=== PATIENT | female | born 1965 | race Caucasian/White ===

== ENCOUNTER 2019-11-07 07:25 | Inpatient (IN) | payer MEDICAID ==
[~2019-11-07] VITALS: Ht 154.4 cm; Wt 61.7 kg
[2019-11-07] MEDS ORDERED: SODIUM CHLORIDE 0.9% 1,000 ML IV SCH (08:00)
[2019-11-07] MEDS ORDERED: ATOR40TA70 PO (11:26)
[2019-11-07] MEDS ORDERED: LISI10TA5 PO (11:26)
[2019-11-07] MEDS ORDERED: ERTU15TA PO (11:26)
[2019-11-07] MEDS ORDERED: METF-815 PO (11:26)
[2019-11-07] MEDS ORDERED: EPINEPHRINE 1:1000 1 MG/ML AMP ONE (12:24)
[2019-11-07] MEDS ORDERED: BACITRACIN 50,000 UNITS/VIAL ONE (12:25)
[2019-11-07] MEDS ORDERED: BUPIVACAINE/EPINEPH/PF 0.25%/0.0005 10ML ONE ×3 (12:25→15:43)
[2019-11-07] MEDS ORDERED: CEFAZOLIN SODIUM 1000MG/VIAL ONE (13:51)
[2019-11-07] MEDS ORDERED: LABETALOL 5MG/ML SYR 20 MG/4 ML SYRINGE IV PRN (14:30)
[2019-11-07] MEDS ORDERED: HYDROMORPHONE HCL/PF 2MG/ML CPJ IV PRN (14:30)
[2019-11-07] MEDS ORDERED: ONDANSETRON HCL 4MG/2ML INJ IV PRN ×2 (14:30→16:15)
[2019-11-07] MEDS ORDERED: MEPERIDINE HCL/PF 25MG/ML CPJ IV PRN (14:30)
[2019-11-07] MEDS ORDERED: MORPHINE SULFATE/PF 1MG/ML 10ML AMP ONE (14:59)
[2019-11-07] MEDS ORDERED: ACETAMINOPHEN 325MG TABLET PO PRN (16:15)
[2019-11-07] MEDS ORDERED: ZOLPIDEM TARTRATE 5MG TABLET PO PRN (16:15)
[2019-11-07] MEDS ORDERED: HYDROCODONE/ACETAMINOPHEN 5/325MG TABLET PO PRN ×2 (16:15)
[2019-11-07] MEDS ORDERED: ONDANSETRON INJ IV PRN (16:45)
[2019-11-07] MEDS ORDERED: NALOXONE INJ IV PRN (16:45)
[2019-11-07] MEDS ORDERED: HYDROMORPHONE PCA 10MG/50ML IV PRN (16:45)
[2019-11-07 20:00] VITALS: BP 117/64
[2019-11-07 20:30] VITALS: BP 113/77
[2019-11-07] MEDS: INSULIN LISPRO 100 UNITS/ML SUBCUT SCH (21:00)
[2019-11-07] MEDS ORDERED: DEXTROSE 50% WATER 50ML SYRINGE IV PRN (21:00)
[2019-11-07] MEDS: BLOOD SUGAR DIAGNOSTIC STRIP TEST SCH (21:15)
[2019-11-08] VITALS: BP 113/77
[2019-11-08 04:00] VITALS: BP 102/60
[2019-11-08] MEDS: BLOOD SUGAR DIAGNOSTIC STRIP TEST SCH ×2 (06:44→12:34)
[2019-11-08] MEDS: INSULIN LISPRO 100 UNITS/ML SUBCUT SCH ×2 (07:50→12:34)
[2019-11-08 08:00] VITALS: BP 119/69
[2019-11-08 12:00] VITALS: BP 106/71
[2019-11-08 16:00] VITALS: BP 107/69
[2019-11-08 16:05] VITALS: BP 107/69
== END 2019-11-08 16:17 | disposition home or self-care (01) | DRG 315 ==
LOC: OR 07:25 → 6EST 20:04
PROVIDERS: ADMIT Internal Medicine; ATTEND Internal Medicine
PROC: 0MB14ZZ Excision of Right Shoulder Bursa and Ligament, Percutaneous Endoscopic Approach (ICD-10-PCS; principal; 2019-11-07)
DX: M75.01 Adhesive capsulitis of right shoulder (principal); E11.9 Type 2 diabetes mellitus without complications; E78.5 Hyperlipidemia, unspecified; G89.29 Other chronic pain; M75.101 Unspecified rotator cuff tear or rupture of right shoulder, not specified as traumatic; I10 Essential (primary) hypertension; M13.819 Other specified arthritis, unspecified shoulder; Z79.899 Other long term (current) drug therapy; Z90.49 Acquired absence of other specified parts of digestive tract; Z03.818 Encounter for observation for suspected exposure to other biological agents ruled out
CPT/HCPCS: 71045; 82962; 83036; 88304; 88311; 97166; A4565; J0171; J0690; J1170; J1815; J2274; J3490; C9803-CS; U0003-CS

== ENCOUNTER 2020-03-07 05:47 | Day surgery (SDC) | payer MEDICAID ==
[~2020-03-07] VITALS: Ht 154.9 cm; Wt 61.7 kg
[~2020-03-07 05:47] MED LIST: ATOR40TA70 PO; ERTU15TA PO; LISI10TA5 PO; METF-815 PO
[2020-03-07] MEDS ORDERED: SODIUM CHLORIDE 0.9% 1,000 ML IV SCH (06:30)
[2020-03-07] MEDS ORDERED: LIDOCAINE HCL 1% 20ML VIAL (Pyxis) INJ ONE (06:34)
[2020-03-07] MEDS ORDERED: METHYLPREDNISOLONE SOD SUCC 40 MG/ML VIAL ONE (06:34)
[2020-03-07] MEDS ORDERED: BUPIVACAINE/EPINEPH/PF 0.25%/0.0005 10ML ONE (06:35)
[2020-03-07] MEDS ORDERED: HYDROCODONE/ACETAMINOPHEN 10/325MG TABLET PO PRN (07:45)
[2020-03-07] MEDS ORDERED: MORPHINE SULFATE/PF 1MG/ML 10ML AMP ONE (07:48)
[2020-03-07] MEDS ORDERED: ROPIVACAINE HCL 10MG/ML 20 ML VIAL EPI ONE ×2 (07:50→07:53)
[2020-03-07] MEDS ORDERED: METOCLOPRAMIDE HCL 10MG/2ML VIAL ONE (07:53)
[2020-03-07] MEDS ORDERED: SUCCINYLCHOLINE CHLORIDE 200MG/10ML IV ONE (07:53)
[2020-03-07] MEDS ORDERED: GLYCOPYRROLATE 0.2 MG/ML 2ML VIAL ONE (07:53)
[2020-03-07] MEDS ORDERED: MIDAZOLAM HCL 2 MG/2 ML VIAL ONE (07:53)
[2020-03-07] MEDS ORDERED: FENTANYL CITRATE/PF 50MCG/ML 2ML VIAL ONE (07:53)
[2020-03-07] MEDS ORDERED: PROPOFOL 200MG/20ML VIAL IV ONE (07:53)
[2020-03-07] MEDS ORDERED: ONDANSETRON HCL 4MG/2ML INJ ONE (07:53)
[2020-03-07] MEDS ORDERED: HYDROMORPHONE HCL/PF 2MG/ML CPJ IV PRN (08:45)
[2020-03-07] MEDS ORDERED: ONDANSETRON HCL 4MG/2ML INJ IV PRN (08:45)
[2020-03-07] MEDS ORDERED: MEPERIDINE HCL/PF 25MG/ML CPJ IV PRN ×2 (08:45)
[2020-03-07] MEDS ORDERED: SODIUM CHLORIDE 0.9% 1,000 ML IV ONE (08:45)
[2020-03-07] MEDS ORDERED: MORPHINE SULFATE 2 MG/ML CPJ (NOT FOR IM USE) IV PRN (08:45)
== END 2020-03-07 11:00 | disposition home or self-care (01) ==
LOC: OR 05:47
PROVIDERS: ATTEND Orthopaedic Surgery
DX: M75.01 Adhesive capsulitis of right shoulder (principal); M75.121 Complete rotator cuff tear or rupture of right shoulder, not specified as traumatic; I10 Essential (primary) hypertension; E78.00 Pure hypercholesterolemia, unspecified; E11.618 Type 2 diabetes mellitus with other diabetic arthropathy; Z79.84 Long term (current) use of oral hypoglycemic drugs; Z79.899 Other long term (current) drug therapy; Z98.890 Other specified postprocedural states; Z88.8 Allergy status to other drugs, medicaments and biological substances
CPT/HCPCS: 20610; 23700; 64418; 82962; J0330; J2250; J2274; J2405; J2704; J2765; J2795; J2920; J3010; A4565; J0171; J3490

== ENCOUNTER 2023-11-14 18:20 | Emergency (ER) | payer MEDICAID ==
[~2023-11-14] VITALS: Ht 152.4 cm; Wt 61.0 kg
[~2023-11-14 18:20] MED LIST changes: +LISI10TA26 PO; -LISI10TA5 PO; -METF-815 PO; +METF-873 PO
[2023-11-14 18:23] VITALS: BP 138/85; PULSE 84; RESP 20; TEMP 98.2; O2SAT 98
[2023-11-14] MEDS ORDERED: DIPHENHYDRAMINE 50MG CAPSULE PO ONE (18:45)
[2023-11-14] MEDS ORDERED: DIPH25TA62 MT (18:53)
[2023-11-14] MEDS: DIPHENHYDRAMINE 25MG CAPSULE PO NR (19:08)
== END 2023-11-14 19:11 | disposition home or self-care (01) ==
LOC: ER 18:20
DX: R21 Rash and other nonspecific skin eruption (principal); E11.9 Type 2 diabetes mellitus without complications; I10 Essential (primary) hypertension; Z98.890 Other specified postprocedural states; Z90.49 Acquired absence of other specified parts of digestive tract
CPT/HCPCS: 99282; Q0163